=== PATIENT | female | born 1980 | race Caucasian/White ===

== ENCOUNTER 2025-02-20 17:17 | Emergency (ER) | payer OTHER, SELFPAY ==
[2025-02-20 17:23] VITALS: BP 149/95
[2025-02-20 17:45] LABS: % Immature Granulocytes 0.2 % (0-0.5); % Lymphocytes 31.4 % (20.5-51.1); % Monocytes 7.7 % (1.7-9.3); % Neutrophils 54.7 % (42.2-75.2); Absolute Basophils 0.1 10^3/uL (0-0.2); Absolute Eosinophils 0.3 10^3/uL (0-0.7); Absolute Lymphocytes 1.6 10^3/uL (1.2-3.4); Absolute Monocytes 0.4 10^3/uL (0.1-0.6); Absolute Neutrophils 2.9 10^3/uL (1.4-6.5); Hematocrit 31.8 % (37.0-47.0); Hemoglobin 10.7 g/dL (12.0-16.0); Mean Corp Hgb Conc. 33.6 g/dL (33.0-37.0); Mean Corpuscular Hgb 28.1 pg (27.0-31.0); Mean Corpuscular Volume 83.5 fL (81.0-99.0); Mean Platelet Volume 11.6 fL (7.4-10.4); Nucleated Red Blood Cells % 0 %; Platelet Count 202 10^3/uL (130-400); Red Blood Cell Count 3.81 10^6/uL (4.20-5.40); Red Cell Dist. Width 13.4 % (11.5-14.5); White Blood Cell Count 5.2 10^3/uL (4.8-10.8)
[2025-02-20 17:52] LABS: HCG, Serum Qualitative Screen Negative
[2025-02-20 18:00] LABS: ALT (SGPT) 37 U/L (0-35); AST (SGOT) 27 U/L (14-36); Albumin 4.4 g/dl (3.5-5.0); Alkaline Phosphatase 39 U/L (38-126); Blood Urea Nitrogen 16 mg/dl (7-17); COVID-19 Antigen Negative (Negative); Calcium 9.2 mg/dl (8.4-10.2); Carbon Dioxide 20 mmol/L (22-30); Chloride 113 mmol/L (98-107); Glucose 125 mg/dl (70-99); Potassium 3.1 mmol/L (3.5-5.1); Sodium 143 mmol/L (135-145); Total Bilirubin 0.3 mg/dl (0.2-1.3); Total Protein 7.1 g/dl (6.3-8.2); eGFR > 60.00
[2025-02-20 19:08] VITALS: BP 145/91
[2025-02-20 20:00] VITALS: BP 136/87
[2025-02-20] MEDS: KCL 40 MEQ PO (20:13)
[2025-02-20] MEDS: NSS 500 IV (20:21)
[2025-02-20 20:39] LABS: D-Dimer 0.32 ug/mlFEU (0.00-0.50)
[2025-02-20 20:51] LABS: Troponin I < 0.012 ng/ml
--- NOTE | 2025-02-20 21:31 | ED.GENMED ---
History of Present Illness
General
Chief Complaint: Breathing Problem
Source: patient
Exam Limitations: none
Time Seen by Provider: 02/20/25 19:31
Nursing documentation reviewed up to this point in time: agreed with
History of Present Illness
History of Present Illness:
The patient is a 44-year-old female who presents to the emergency department with cough and low-grade fever. Patient states symptoms started yesterday with generalized fatigue. However, this morning she woke up with a low-grade fever and cough. She
reports very mild shortness of breath/chest tightness. No exertional or pleuritic component to the symptoms.
Patient also with intermittent pain in her left calf over the past few months for which she has been following with her primary care provider for and has ultrasound scheduled for next week.
Patient did have recent sinus surgery without any complications. She did have one episode of very mild bloody sputum a few days ago.
No recent travel. No exogenous hormones. No personal or family history of blood clots/clotting disorders.
Past History
Past History
ED Past Medical History: Asthma, GERD (w/ hiatel hernia) and Hypothyroidism
ED Past Surgical History: Cholecystectomy, and Other
Social History
Tobacco: Non-smoker
Alcohol: Occasional
Drug: None
Personal:
Living: with family
Employment: Employed
Family History
Family History: Other (Noncontributory)
Review of Systems
Review of Systems
Allergies reviewed?: Yes
All Other Systems: ROS reviewed and negative except as documented in HPI and ROS
Phy Exam
Physical Exam
Physical Exam:
Vitals: Mildly hypertensive, otherwise vital signs stable. Afebrile
General: Patient is well appearing, no acute distress. Nontoxic appearing.
Skin: Warm and dry, no rashes or lesions
Head: Normocephalic, atraumatic
Eyes: Sclera nonicteric.
Throat: Protecting airway
Neck: Normal ROM, no cervical spine tenderness, no meningismus. No JVD
Cardiac: Regular rate and rhythm, no murmurs.
Pulm: Normal respiratory effort, no wheezes, rales, rhonchi heard on exam
.
Abdomen: No abdominal tenderness.
Extremities: No evidence of cyanosis or edema. LLE without any pitting edema, tenderness or erythema. Negative katherine sign bilaterally.
Neuro: AAOx3. Grossly intact
Psychiatric: Normal affect.
Course
Orders/Labs/Results
Orders:
Orders
02/20/25 17:19
Electrocardiogram (*1) Urgent
Reason for Study: Chest Pain
EKG- Treatment ONCE
02/20/25 17:26
Test Result ONCE
US Legs, Left [US Periph Venous LOWER Ext LT] Urgent
Comment:
Reason For Exam: calf pain
02/20/25 17:32
COVID-19 Antigen Urgent
Source: Nasal Swab
Complete Blood Count/With Diff Urgent
Comprehensive Metabolic Panel Urgent
HCG, Serum Qualitative Screen Urgent
02/20/25 17:33
Influenza A+B Rapid Molecular Urgent
MARCIN Source: Nasal Swab
Specimen Description:
02/20/25 19:50
0.9% Sodium Chloride 500 ml [Nss] 500 ml IV BOLUS
Potassium Chloride [KCl] 40 meq PO NOW STA
02/20/25 20:19
D-Dimer Urgent
Troponin I Urgent
02/20/25 20:59
CR Chest - 2 Views Urgent
Comment:
Reason For Exam: Cough, fever, SOB
02/20/25 22:41
Prednisone [Deltasone] 40 mg PO NOW STA
Abnormal Lab Results
02/20/25
17:32
RBC 3.81 L 10^6/uL
(4.20-5.40)
Hgb 10.7 L g/dL
(12.0-16.0)
Hct 31.8 L %
(37.0-47.0)
MPV 11.6 H fL
(7.4-10.4)
Potassium 3.1 L mmol/L
(3.5-5.1)
Chloride 113 H mmol/L
(98-107)
Carbon Dioxide 20 L mmol/L
(22-30)
Glucose 125 H mg/dl
(70-99)
ALT 37 H U/L
(0-35)
02/20/25 17:32
02/20/25 17:32
Vital Signs
Initial and Last Documented VS:
Initial Vital Signs
Temp Pulse Resp BP Pulse Ox
99.2 F 92 16 149/95 99
02/20/25 17:23 02/20/25 17:23 02/20/25 17:23 02/20/25 17:23 02/20/25 17:23
Last Documented Vital Signs
Temp Pulse Resp BP Pulse Ox
99.2 F 94 16 136/87 97
02/20/25 17:23 02/20/25 22:00 02/20/25 22:00 02/20/25 20:00 02/20/25 22:00
MDM/Problems Addressed
Differential Diagnosis Includes:
Not limited to: viral bronchitis, pneumonia, asthma exacerbation, DVT, doubt PE, etc
MDM/Problems Addressed:
Patient is a 44-year-old female who presents with viral URI symptoms X 1 day as well as intermittent pain in her left calf for approximate 2 months. No exertional or pleuritic component to symptoms. Vitals and physical exam as above. Basic labs
were sent prior to my evaluation. CBC reveals mild anemia which appears to be about patient's baseline. Chemistry reveals mild hypokalemia which patient does have a history of, otherwise no acute abnormalities. Ultrasound of left lower extremity
shows no evidence of DVT. Would consider patient overall very low risk for pulmonary embolism. Will send D-dimer for screening, as well as troponin. Symptoms more consistent with infectious process given associated fever�likely viral in nature.
Will obtain chest x-ray to rule out pneumonia. Patient afebrile here. Will give p.o. potassium.
Update: D-dimer and troponin negative. Chest x-ray shows no evidence of pneumonia. Patient remains well and comfortable appearing. Suspect likely viral bronchitis with possible mild asthma exacerbation. She has inhaler at home. Will send short
course of steroids and advised supportive care at home including inhaler, Tylenol/Motrin as needed for pain. Advise follow-up with primary care for further evaluation and to ensure symptoms improve as well as repeat lab work to ensure potassium
normalizes. Return precautions discussed.
Chronic conditions affecting care:
Asthma
Acute Exacerbation and/or Progression of Chronic Illness:
Acute viral bronchitis with mil dasthma exacerbation
*Radiology
Radiology exam reviewed: preliminary read by ED provider (CXR reviewed by wi - no acute abnormalities) and radiology read reviewed
*Pulse Oximetry
SaO2: 98
Oxygen Mode of Delivery: Room air
Patient hypoxic: no
*EKG
Interpreted by ED Provider?: Yes
EKG Intrepretation Date: 02/20/25
Interpretation: abnormal
Comparison EKG: changes noted
Heart Rate: 111
Rate: tachycardiac
Rhythm: sinus
Ischemia: non-specific ST changes
*White Sugar Boiler Interpretation
Rate: normal
Interpretation: normal
Heart Rate: 94
Rhythm: sinus
*Critical Care Note
Total Time (30-74mins, 75-104mins- exclusive of procedures): Not Applicable
ED Attending Note
-
Portions of this chart may have been created with voice recognition software.� Occasional wrong word or��sound alike� substitutions may have occurred due to the inherent limitations of voice recognition software.
Discharge Plan
Departure
Patient Disposition: Home (Routine Discharge)
Date of Disposition: 02/20/25
Time of Disposition: 22:34
Patient with high blood pressure during this ER visit?: Yes
Discharge Problem:
Acute viral bronchitis
Instructions: Acute Bronchitis, Adult (DC), Asthma in adults - ED discharge instructions, BLOOD PRESSURE
Prescriptions:
New
prednisone 20 mg tablet
40 mg PO DAILY 4 Days Qty: 8 0RF
No Action
levothyroxine 88 MCG tablet
88 mcg PO DAILY
albuterol sulfate 1 PUFF HFA aerosol inhaler
2 puff inhalation R Q4HPRN PRN (Reason: sob)
multivitamin with folic acid [Tab-A-Osvaldo] 1 TABLET tablet
1 tab PO DAILY
dexlansoprazole [Dexilant] 30 MG capsule,biphase delayed releas
60 mg PO DAILY@1500
sucralfate 1 GM/10 ML suspension
1 gm PO QIDPRN PRN (Reason: reflux)
cyanocobalamin (vitamin B-12) 1,000 MCG tablet
1,000 mcg PO DAILY
cholecalciferol (vitamin D3) 2,000 UNITS tablet
2,000 units PO DAILY
fluticasone propion-salmeterol [Advair HFA] 1 PUFF HFA aerosol inhaler
2 puff inhalation R BID
vancomycin [Firvanq] 50 MG/ML recon soln
125 mg PO Q6 Qty: 40 0RF
Lactobac 2-Bifido 1-S. therm [High Potency Probiotic] 1 CAP capsule
2 cap PO DAILY Qty: 60 0RF
potassium chloride 20 MEQ tablet extended release
20 meq PO DAILY Qty: 30 0RF
Referrals:
Emiliana Zhang DO [Family Provider, Family Practice] - Follow up in 2-3 days
Activity Restrictions/Additional Instructions:
RETURN TO THE EMERGENCY DEPARTMENT WITH ANY FEVER, CHILLS, PRODUCTIVE COUGH, COUGHING UP BLOOD, CHEST PAIN/SHORTNESS OF BREATH, WORSENING IN CURRENT SYMPTOMS, OR ANY OTHER CONCERNS
- As discussed�your chest x-ray showed no evidence of pneumonia. Your ultrasound showed no evidence of a blood clot.
- You likely have a viral illness and a possible mild exacerbation of your asthma.
- A prescription for prednisone has been sent to your pharmacy. Please take once a day for the next 4 days�start this tomorrow. Continue to use your inhaler at home as needed.
- It is important to stay well-hydrated and get plenty of rest. Take Tylenol and/or Motrin as needed for pain.
- Follow-up with your primary care in a few days for further evaluation/management to ensure that symptoms are improving. Your potassium was low in the emergency department. You were given 40 of p.o. potassium please be sure that this value was
repeated and trending upward.
Monitor your symptoms very closely return to the emergency department with any acute worsening/new symptoms or any signs of worsening infection
Interventions
Interventions:
*Risk Screen - Suicide Last Done: 02/20/25 17:25
*Neglect/Abuse Screening Last Done: 02/20/25 17:25
*Nursing Disposition Last Done: 02/20/25 22:54
ED- Pulmonary Assessment Last Done: 02/20/25 20:42
Discharge Date and Time
Discharge Date/Time: 02/20/25 22:54
Print Language: GERMAN
[2025-02-20] MEDS: DELTASONE 40 MG PO (22:50)
== END 2025-02-20 22:54 | disposition home or self-care (01) ==
LOC: EMR 17:17
PROVIDERS: Physician Assistant; Student in an Organized Health Care Education/Training Program; EMERGENCY PHYSICIAN Student in an Organized Health Care Education/Training Program; FAMILY PHYSICIAN Family Medicine
DX: J20.8 Acute bronchitis due to other specified organisms (principal); B97.89 Other viral agents as the cause of diseases classified elsewhere; E03.9 Hypothyroidism, unspecified; J45.909 Unspecified asthma, uncomplicated; E87.6 Hypokalemia; Z11.52 Encounter for screening for COVID-19
CPT/HCPCS: 99285; 96360; 71046; 80053; 84484; 84703; 85025; 85379; 87502; 87811; 93005; 93971